=== PATIENT | male | born 1970 | race Caucasian/White ===

== ENCOUNTER 2017-12-21 12:45 | Emergency (ER) | payer OTHER ==
[2017-12-21 12:56] VITALS: BP 127/82; PULSE 75; TEMP 99.2; BMI 35.6
--- NOTE | 2017-12-21 13:02 | PDOC ---
History of Present Illness - General Chief Complaint: Injury Stated Complaint: CALF PAIN INJURY ON THE JOB Time Seen by Provider: 12/21/17 12:58 History Source: Patient - History of Present Illness Initial Comments: 12/21/17 13:25 47 year old c/o left calf pain reports feeling a pop while pulling out a AC at work. patient is maintanence worker inhotel. reports increased pain with weight bear. patient able to move the ankle and knee without difficulty. PMHX: hypertension Past History - Past Medical History Allergies/Adverse Reactions: Allergies Allergy/AdvReac Type Severity Reaction Status Date / Time No Known Allergies Allergy Verified 12/21/17 12:52 Home Medications: Ambulatory Orders Ibuprofen 800 mg PO QID PRN #20 tablet 12/21/17 COPD: No HTN: Yes - Suicide/Smoking/Psychosocial Hx Smoking History: Never smoked Have you smoked in the past 12 months: No Information on smoking cessation initiated: No Hx Alcohol Use: No Drug/Substance Use Hx: No Substance Use Type: None Review of Systems - Review of Systems Able to Perform ROS?: Yes Is the patient limited Divehi proficient: No Constitutional: No: Symptoms Reported, See HPI, Chills, Diaphoresis, Fever, Loss of Appetite, Malaise, Night Sweats, Weakness, Weight Stable, Unintentional Wgt. Loss, Unexplained wgt Loss, Other Musculoskeletal: Yes: Muscle Pain *Physical Exam - Vital Signs Last Vital Signs Temp Pulse Resp BP Pulse Ox 99.2 F 75 18 127/82 100 12/21/17 12:53 12/21/17 12:53 12/21/17 12:53 12/21/17 12:53 12/21/17 12:53 - Physical Exam General Appearance: Yes: Appropriately Dressed Extremity: positive: Normal Capillary Refill, Calf Tenderness (calf tense , full rom to ankle and full rom to knee.) Integumentary: positive: Normal Color, Dry, Warm Neurologic: positive: Fully Oriented, Alert, Normal Mood/Affect Progress Note - Progress Note Progress Note: A: calf pain likely a gastrocnemius strain P: will xray to r/o tib fib abnormality. pain control RICE crutches. Xray negative *DC/Admit/Observation/Transfer Diagnosis at time of Disposition: Gastrocnemius muscle strain Qualifiers: Encounter type: initial encounter Laterality: left Qualified Code(s): S86.112A - Strain of other muscle(s) and tendon(s) of posterior muscle group at lower leg level, left leg, initial encounter - Discharge Dispostion Disposition: HOME - Prescriptions Prescriptions: Ibuprofen 800 mg PO QID PRN #20 tablet PRN Reason: Moderate Pain - Referrals Referrals: Christophe Bro [Primary Care Provider] - Nick Armenta MD [Staff Physician] - (call today) - Patient Instructions Printed Discharge Instructions: Calf Muscle Strain Additional Instructions: rest ICE continue compress elevate extremity use crutches. follow up with orthopedic as soon as possible. - Post Discharge Activity Forms/Work/School Notes: Back to Work
[2017-12-21] MEDS ORDERED: IBUPROFEN 600 MG TABLET (FP) PO ONE ×2 (13:24→14:03)
[2017-12-21] MEDS ORDERED: TETANUS AND DIPHTHERIA TOXOID 0.5 ML DISP.SYRIN IM ONE (14:05)
== END 2017-12-21 14:18 | disposition home or self-care (01) ==
LOC: JERFT 12:45
PROC: 3E0234Z Introduction of Serum, Toxoid and Vaccine into Muscle, Percutaneous Approach (ICD-10-PCS; principal; 2017-12-21)
DX: S86.112A Strain of other muscle(s) and tendon(s) of posterior muscle group at lower leg level, left leg, initial encounter (principal); X50.0XXA Overexertion from strenuous movement or load, initial encounter; Y93.89 Activity, other specified; Y92.59 Other trade areas as the place of occurrence of the external cause; Y99.0 Civilian activity done for income or pay
CPT/HCPCS: 73590-TC-LT-FY; 99281-25